=== PATIENT | female | born 1965 | race Caucasian/White ===

== ENCOUNTER 2018-11-16 05:28 | Day surgery (SDC) | payer BC ==
[~2018-11-16] VITALS: Ht 170.2 cm; Wt 90.7 kg
--- NOTE | ~2018-11-16 | OP ---
PATIENT NAME: EASTON DAVILA MEDICAL RECORD: [id number] :65 LOCATION:D.OPS ADMISSION DATE: SURGEON: PEDRO LUIS JARVIS DPM DATE OF OPERATION: 11/16/2018 PREOPERATIVE DIAGNOSIS: Arthritis, right second metatarsal cuneiform joint. POSTOPERATIVE DIAGNOSIS: Arthritis, right second metatarsal cuneiform joint. PROCEDURE: Fusion, right second met cuneiform joint. ANESTHESIA: General with local infiltrate utilizing lidocaine and Marcaine plain, approximately 17 cc total on the dorsal foot. HEMOSTASIS: Right thigh tourniquet at 350 mmHg. PREOPERATIVE DETAILS: The patient was taken to the OR and placed on the operating table in a supine position. This was followed by induction of general anesthesia and infiltration of local anesthetic. The right extremity was then prepped and draped in usual aseptic technique followed by exsanguination and inflation of tourniquet. A 15 blade was used to create a 3.5-cm linear incision over the dorsal aspect of the right dorsal foot overlying the joint. The incision was deepened down through subcutaneous tissue being sure to avoid all vital structures. Dissection was carried down to the deep tissue. The deep peroneal nerve and dorsalis pedis artery were visualized and freed and retracted in the wound. The periosteum was then exposed. A linear periosteal incision was made over the top of the joint and freed. The joint was acquired. A sagittal saw was used to resect the joint. Wound was flushed. A bone graft was then pounded into the joint, very securely. Due to the tight securing of the bone graft, no hardware was used to secure it. The wound was flushed. The periosteum was repaired with 2-0 Vicryl, the subcutaneous tissue with 4-0 Rapide, and the skin was closed with 4-0 Rapide in a subcuticular technique followed by Dermabond. Adaptic, 4 x 4 and Conform were used to dress the wound followed by application of a modified Sullivan compression dressing. Tourniquet was deflated. POSTOPERATIVE DETAILS: The patient tolerated the procedure well and left the OR with vital signs stable and vascular status at preoperative levels. The patient was transported to recovery per anesthesia in stable condition. TRANSINT:[id number] Voice Confirmation ID: [id number] DOCUMENT ID: [id number] PEDRO LUIS JARVIS DPM CC: [id number] DICTATION DATE: 11/16/18812 PICTURE FRAME MAKER: 11/16/18 0843 REG [facility] [address] [facility], [facility]
[~2018-11-16 05:28] MED LIST: CLARITIN 10 MG10 MG PO; embrel INJ
[2018-11-16 05:53] LABS: HEMATOCRIT 40.1 % (36.0-48.0); HEMOGLOBIN 14.1 g/dL (12-16); MCH 33.3 pg (26.0-34.0); MCHC 35.2 g/dL (31.0-37.0); MCV 94.6 fL (80.0-100.0); MEAN PLATELET VOLUME 9.8 fL (7.4-10.4); RBC 4.24 10x6/uL (4.00-5.40); RDW 12.7 % (11.5-14.5); WBC 6.2 10x3/uL (4.8-10.8)
[2018-11-16 06:35] VITALS: BP 158/109; Ht 170.2 cm; Wt 90.7 kg
[2018-11-16 06:53] LABS: HCG URINE NEGATIVE (NEGATIVE)
--- NOTE | 2018-11-16 09:05 | NUR ---
0900 ICE PROVIDED FOR BEHIND KNEE AND ABOVE FOOT, ELEVATED WITH PILLOWS AND FOOT OF BED
--- NOTE | 2018-11-16 09:07 | NUR ---
0905 FL DIET SERVED.
== END 2018-11-16 10:10 | disposition home or self-care (01) ==
LOC: D.OPS 05:28 → D.PAN 07:00 → D.OPS 07:00
PROVIDERS: Anesthesiology; ATTEND Podiatrist
DX: M19.071 Primary osteoarthritis, right ankle and foot (principal); Z01.812 Encounter for preprocedural laboratory examination